=== PATIENT | male | born 1985 | race African-American/Black ===

== ENCOUNTER 2017-08-17 20:15 | Emergency (ER) | payer MEDICAID ==
[~2017-08-17] VITALS: Ht 177.8 cm; Wt 65.8 kg
[2017-08-17 20:56] LABS: Basophils # (auto) 0.1 uL; Eosinophils # (auto) 0.2 uL; Monocytes # (auto) 0.6 uL; Red Cell Distribution Width 14.5 % (11.8-14.3)
[2017-08-17 20:58] LABS: Basophils % (auto) 1.3 % (0.0-2.0); Eosinophils % (auto) 2.8 % (0.0-7.0); Hematocrit 43.6 % (41.0-53.0); Hemoglobin 13.7 g/dL (13.5-17.5); Lymphocytes # (auto) 1.2 uL; Lymphocytes % (auto) 18.2 % (10.0-50.0); Mean Corpuscular Hemoglobin 22.5 pg (28.0-32.0); Mean Corpuscular Hgb Conc. 31.4 g/dL (32.0-36.0); Mean Corpuscular Volume 71.8 fL (80.0-100.0); Monocytes % (auto) 8.9 % (0.0-12.0); Neutrophils # (auto) 4.6 uL; Neutrophils % (auto) 68.8 % (37.0-80.0); Platelet Count (auto) 253 10^3/uL (140-450); Red Blood Cells 6.08 10^6/uL (4.5-5.90); White Blood Cell 6.7 10^3/uL (4.4-10.8)
[2017-08-17 21:18] LABS: Alanine Aminotransferase 33 U/L (16-61); Alkaline Phosphatase 51 U/L (45-117); Anion Gap 7 (5-15); Aspartate Aminotransferase 27 U/L (15-37); BUN/Creatinine Ratio 12.7; Bilirubin, Total 0.6 mg/dL (0.2-1.0); Blood Urea Nitrogen 17 mg/dL (7-18); Calcium 8.7 mg/dL (8.5-10.1); Carbon Dioxide 28 mmol/L (21-32); Chloride 104 mmol/L (98-107); GFR African American 80 mL/min; GFR Non-African American 66 mL/min; Glucose 111 mg/dL (74-106); Magnesium 2.1 mg/dL (1.6-2.6); Potassium 3.5 mmol/L (3.5-5.1); Sodium 139 mmol/L (136-145); Total Protein 8.1 g/dL (6.4-8.2)
[2017-08-17 21:29] LABS: Urine Bacteria NONE SEEN /hpf (None Seen); Urine Blood Negative /uL (Negative); Urine Mucus FEW (None Seen); Urine Specific Gravity 1.032 (1.001-1.035); Urine WBC 2 /hpf (0 - 3)
[2017-08-18 06:06] VITALS: BP 117/76
[2017-08-18 06:16] LABS: Alcohol, Urine < 3.0 mg/dL (0-5); Amphetamine Screen, Urine NEGATIVE (NEGATIVE); Barbiturate Scree,Urine NEGATIVE (NEGATIVE); Benzodiazephine Screen, Urine NEGATIVE (NEGATIVE); Cannabinoid Screen, Urine NEGATIVE (NEGATIVE); Cocaine Screen, Urine NEGATIVE (NEGATIVE); Opiate Scree,Urine NEGATIVE (NEGATIVE); Phencyclidine Screen, Urine NEGATIVE (NEGATIVE)
== END 2017-08-18 06:56 | disposition home or self-care (01) ==
LOC: ER 20:15
DX: R07.89 Other chest pain (principal); R00.2 Palpitations
CPT/HCPCS: 36415; 71046; 80053; 80307; 81001; 83735; 84443; 84484; 85025; 93005

== ENCOUNTER 2020-09-25 16:40 | Emergency (ER) | payer MEDICAID ==
[~2020-09-25] VITALS: Ht 180.3 cm; Wt 77.1 kg
[2020-09-25] MEDS ORDERED: fentaNYL CITRATE 100 MCG/2 ML VL IV ONE (19:45)
[2020-09-25] MEDS ORDERED: KETOROLAC TROMETH 30 MG/ML 1ML VIAL IV ONE (19:45)
[2020-09-25 20:41] VITALS: BP 140/73
[2020-09-25] MEDS ORDERED: ONDANSETRON HCL 4 MG/2 ML VIAL ONE (20:44)
[2020-09-25] MEDS ORDERED: ONDANSETRON HCL 4 MG/2 ML VIAL IV ONE (20:45)
== END 2020-09-25 21:26 | disposition home or self-care (01) ==
LOC: EDUNIT# 16:40 → EDBD 16:40 → ER 16:40
DX: M48.061 Spinal stenosis, lumbar region without neurogenic claudication (principal)
CPT/HCPCS: 72131; 96374; 96375; 99284; J1885; J2405; J3010